=== PATIENT | male | born 1985 | race Caucasian/White ===

== ENCOUNTER 2018-11-05 14:25 | Emergency (ER) | payer OTHER ==
--- NOTE | 2018-11-05 14:42 | PDOC ---
Rapid Medical Evaluation Chief Complaint: Injury Time Seen by Provider: 11/05/18 14:40 Medical Evaluation: Allergies Allergy/AdvReac Type Severity Reaction Status Date / Time No Known Allergies Allergy Verified 03/28/13 11:41 11/05/18 14:40 I have performed a brief in-person evaluation of this patient. The patient presents with a chief complaint of: Laceration to right index and middle finger from a metal piece at work few mins ago. Does not recall last tetanus Pertinent physical exam findings: 3cm deep lac to dorsal of right index finger with 2cm lac to dorsal of right middle finger I have ordered the following: Tetanus vaccine The patient will proceed to the ED for further evaluation. Discharge Disposition - Diagnosis Finger laceration Qualifiers: Encounter type: initial encounter Finger: unspecified finger Damage to nail status: without damage Foreign body presence: without foreign body Laterality: right Qualified Code(s): S61.219A - Laceration without foreign body of unspecified finger without damage to nail, initial encounter - Discharge Dispostion Condition at time of disposition: Stable - Referrals - Patient Instructions - Post Discharge Activity
[2018-11-05 14:43] VITALS: BP 157/92; PULSE 96; TEMP 98.5; BMI 32.6
[2018-11-05] MEDS ORDERED: DIPHTH,PERTUSS(ACELL),TET 0.5 ML DISP.SYRIN IM ONE ×2 (14:43→14:50)
--- NOTE | 2018-11-05 15:39 | PDOC ---
History of Present Illness - General Chief Complaint: Injury Stated Complaint: RT HAND INJURY Time Seen by Provider: 11/05/18 14:40 - History of Present Illness Initial Comments: 11/05/18 15:32 33-year-old male without comorbidities presents for evaluation of a hand laceration. He states he was working on an air conditioner on a roof top when the fan lacerated his second and third finger on his right hand. He is not current on tetanus. Past History - Past Medical History Allergies/Adverse Reactions: Allergies Allergy/AdvReac Type Severity Reaction Status Date / Time No Known Allergies Allergy Verified 11/05/18 15:14 Home Medications: Ambulatory Orders NK [No Known Home Medication] 11/05/18 COPD: No Dialysis: (s/p akf) Other medical history: MARILYNN - Surgical History Cardiac Surgery: No - Immunization History Immunization Up to Date: No - Suicide/Smoking/Psychosocial Hx Smoking History: Current every day smoker Have you smoked in the past 12 months: Yes Number of Cigarettes Smoked Daily: 7 Information on smoking cessation initiated: No Hx Alcohol Use: No Drug/Substance Use Hx: No Substance Use Type: None Review of Systems - Review of Systems Musculoskeletal: Yes: See HPI *Physical Exam - Vital Signs Last Vital Signs Temp Pulse Resp BP Pulse Ox 98.5 F 96 H 18 157/92 98 11/05/18 14:39 11/05/18 14:39 11/05/18 14:39 11/05/18 14:39 11/05/18 14:39 - Physical Exam Comments: 11/05/18 15:33 Right third finger skin color and temperature are normal. There is a flap of skin overlying the PIPJ with exposed subcutaneous fat no tendon exposure no gross sensory motor deficits neurovascular intact laceration is U-shaped in about 1 cm There is a linear laceration on the radial aspect of the second finger overlying the skin of the PIPJ exposing the extensor tendon. Extension of the IPJ is week no gross sensory deficits ED Treatment Course - Medications Given in the ED: ED Medications Discontinued Medications Generic Name Dose Route Start Last Admin Trade Name Freq PRN Reason Stop Dose Admin Diphtheria/Tetanus/Acell Pertussis 0.5 ml 11/05/18 14:43 11/05/18 14:52 Boostrix - IM 11/05/18 14:44 0.5 ml .ONCE ONE Administration Medical Decision Making - Medical Decision Making 11/05/18 15:34 Each finger was aseptically prepped and anesthetized with 6 mL of 1% lidocaine without epinephrine the wounds were explored to their bases in a bloodless field , copiously irrigated with normal saline and Betadine each wound required 3 sutures 4-0 nylon was used in a simple interrupted fashion. The extensor tendon was exposed and showed a full-thickness laceration on the second finger. Dry sterile dressings were placed and surgery follow-up given *DC/Admit/Observation/Transfer Diagnosis at time of Disposition: Finger laceration Qualifiers: Encounter type: initial encounter Finger: unspecified finger Damage to nail status: without damage Foreign body presence: without foreign body Laterality: right Qualified Code(s): S61.219A - Laceration without foreign body of unspecified finger without damage to nail, initial encounter - Discharge Dispostion Disposition: HOME Condition at time of disposition: Stable Decision to Admit order: No - Referrals Referrals: Chad Wagner MD [Primary Care Provider] - Ramo Corrigan MD [Staff Physician] - - Patient Instructions Printed Discharge Instructions: DI for Laceration Repair Additional Instructions: You have a lacerated extensor tendon and your second finger of your right hand. You must follow-up with hand surgery without fail as this problem is mostly surgically repaired. Return to the emergency room if problems develop such as redness drainage swelling or increasing pain around the area. Please follow-up with hand surgery in 1-2 days without fail for further evaluation and treatment options. - Post Discharge Activity
[2018-11-05] MEDS ORDERED: BACITRACIN 0.9 GM PACKET ONE (15:49)
[2018-11-05] MEDS ORDERED: BACITRACIN 15 GM TUBE TOPICAL OINTMENT ONE (15:52)
== END 2018-11-05 16:01 | disposition home or self-care (01) ==
LOC: JERFT 14:25
PROC: 3E0234Z Introduction of Serum, Toxoid and Vaccine into Muscle, Percutaneous Approach (ICD-10-PCS; principal; 2018-11-05)
PROC: 0JQJ0ZZ Repair Right Hand Subcutaneous Tissue and Fascia, Open Approach (ICD-10-PCS; 2018-11-05)
DX: S61.212A Laceration without foreign body of right middle finger without damage to nail, initial encounter (principal); S61.210A Laceration without foreign body of right index finger without damage to nail, initial encounter; W26.8XXA Contact with other sharp object(s), not elsewhere classified, initial encounter; Y93.89 Activity, other specified; Y92.89 Other specified places as the place of occurrence of the external cause; Y99.0 Civilian activity done for income or pay
CPT/HCPCS: 90715; 99282-25

== ENCOUNTER 2023-10-16 18:39 | Emergency (ER) | payer OTHER ==
[2023-10-16 18:50] VITALS: BP 170/91; PULSE 94; RESP 18; TEMP 98.3; BMI 31.6
[2023-10-16 19:41] LABS: EPI CELLS 7 /uL (0-25.1); HYALINE CASTS 0 /uL (0-3.1); PH,URINE 6.5 (5.0-8.0); URINE APPEARANCE CLEAR; URINE BACTERIA 18 /uL (0-1359); URINE BILIRUBIN NEGATIVE (NEGATIVE); URINE COLOR YELLOW; URINE GLUCOSE (UA) NEGATIVE (NEGATIVE); URINE KETONE NEGATIVE (NEGATIVE); URINE LEUK ESTERASE NEGATIVE (NEGATIVE); URINE NITRITE NEGATIVE (NEGATIVE); URINE PROTEIN 2+ (NEGATIVE); URINE RBC 19 /uL (0-23.9); URINE WBC 20 /uL (0-25.8)
[2023-10-16] MEDS ORDERED: ACETAMINOPHEN 325 MG TABLET (FP) PO ONE (20:17)
[2023-10-16] MEDS ORDERED: LIDOCAINE 4% PATCH TP ONE (21:01)
[2023-10-16] MEDS ORDERED: ONDANSETRON 4 MG/2 ML VIAL ONE (21:01)
[2023-10-16] MEDS ORDERED: ACETAMINOPHEN INJECTION 100 ML IVPB ONE (21:01)
[2023-10-16] MEDS: ACETAMINOPHEN 1000 MG/100 ML BAG IVPB ONE (21:21)
[2023-10-16] MEDS: ONDANSETRON 4 MG/2 ML VIAL IVPB ONE (21:21)
[2023-10-16] MEDS: LIDOCAINE 4% PATCH TP ONE (21:21)
[2023-10-16] MEDS: SODIUM CHLORIDE 1,000 ML IV STA (21:21)
[2023-10-16 21:26] LABS: BASO % 0.7 % (0-2.0); EOS % 6.9 % (0-4.5); HEMATOCRIT 51.2 % (35.4-49); HEMOGLOBIN 17.1 GM/dL (11.7-16.9); LYMPH % 13.8 % (8-40); MCH 28.1 pg (25.7-33.7); MCHC 33.5 g/dl (32.0-35.9); MEAN CELL VOLUME 83.9 fl (80-96); MEAN PLT VOLUME 7.4 fl (7.5-11.1); MONO % 10.3 % (3.8-10.2); NEUT % 68.3 % (42.8-82.8); PLATELET COUNT 337 10^3/uL (134-434); RBC 6.09 M/mm3 (4.00-5.60); RDW 16.9 % (11.9-15.9); WHITE BLOOD COUNT 8.8 K/mm3 (4.0-10.0)
[2023-10-16 21:51] LABS: CHLORIDE 104 mmol/L (98-107); SODIUM 136 mmol/L (136-145)
[2023-10-16 21:53] LABS: CALCIUM 9.6 mg/dL (8.5-10.1)
[2023-10-16 21:55] LABS: ALBUMIN 3.5 g/dl (3.4-5.0); CO2 27 mmol/L (21-32); GLUCOSE,RANDOM 93 mg/dL (74-106); MAGNESIUM 2.2 mg/dL (1.8-2.4)
[2023-10-16 21:57] LABS: SGOT/AST 44 U/L (15-37); SGPT/ALT 48 U/L (13-61)
[2023-10-16 21:59] LABS: BILIRUBIN,TOTAL 0.8 mg/dL (0.2-1); TOT PROT 7.3 g/dl (6.4-8.2)
[2023-10-16 22:01] LABS: ALK PHOS 35 U/L (45-117)
[2023-10-16] MEDS: LIDOCAINE PATCH REMOVAL MC SCH (22:01)
[2023-10-16 22:29] LABS: ANION GAP 5 mmol/L (4-13); POTASSIUM 6.1 mmol/L (3.5-5.1)
[2023-10-16 23:19] LABS: CALCIUM 8.5 mg/dL (8.5-10.1); POTASSIUM 4.6 mmol/L (3.5-5.1)
[2023-10-16 23:20] LABS: BLOOD UREA NITROGEN 12.2 mg/dL (7-18)
[2023-10-16 23:24] LABS: CREATININE 0.9 mg/dL (0.55-1.3)
== END 2023-10-16 23:22 | disposition home or self-care (01) ==
LOC: JER 18:39
PROC: 3E033NZ Introduction of Analgesics, Hypnotics, Sedatives into Peripheral Vein, Percutaneous Approach (ICD-10-PCS; principal; 2023-10-16)
PROC: 3E033GC Introduction of Other Therapeutic Substance into Peripheral Vein, Percutaneous Approach (ICD-10-PCS; 2023-10-16)
PROC: 3E0337Z Introduction of Electrolytic and Water Balance Substance into Peripheral Vein, Percutaneous Approach (ICD-10-PCS; 2023-10-16)
DX: R10.9 Unspecified abdominal pain (principal); R11.2 Nausea with vomiting, unspecified; M54.50 Low back pain, unspecified
CPT/HCPCS: 36415; 80048; 80053; 81003; 83735; 85025; 87086; 99284-25; J0131